=== PATIENT | female | born 1995 | race Caucasian/White ===

== ENCOUNTER 2017-05-08 16:25 | Outpatient (CLI) | payer MEDICAID ==
[2014-03-08 15:07] VITALS: BMI 27.5
[~2017-05-08 16:25] MED LIST: HYDROCODONE-APA1 TAB PO; IBUPROFEN600 MG PO
[2017-05-08 17:36] LABS: APPEARANCE SLT CLOUDY (CLEAR); COLOR YELLOW (YELLOW); SPECIFIC GRAVITY 1.015 (1.005-1.020)
[2017-05-08 17:37] LABS: BILIRUBIN NEGATIVE (NEGATIVE); GLUCOSE NEGATIVE (NEGATIVE); KETONE NEGATIVE (NEGATIVE); NITRITE NEGATIVE (NEGATIVE); PROTEIN NEGATIVE (NEGATIVE); UROBILINOGEN NORMAL (NORMAL)
[2017-05-08 17:38] LABS: RED CELLS - URINE 0-5 /hpf (0-5)
[2017-05-08 17:39] LABS: BACTERIA MODERATE /hpf (NONE SEEN)
[2017-05-17 13:19] VITALS: BMI 38.9
== END 2017-05-08 20:35 | disposition home or self-care (01) ==
LOC: D.LDO 16:25
PROVIDERS: Obstetrics & Gynecology
DX: O26.893 Other specified pregnancy related conditions, third trimester (principal); Z3A.38 38 weeks gestation of pregnancy

== ENCOUNTER → 2017-05-12 16:12 | Outpatient (CLI) | payer MEDICAID ==
[2014-03-08 15:07] VITALS: BMI 27.5
[~2017-05-12 16:12] MED LIST changes: +IBUPROFEN800 MG PO; +PERCOCET 7.5/321 TAB PO
[2017-05-17 13:19] VITALS: BMI 38.9
== END | disposition home or self-care (01) ==
LOC: D.LDO 16:12
DX: O26.893 Other specified pregnancy related conditions, third trimester (principal); Z3A.39 39 weeks gestation of pregnancy

== ENCOUNTER 2017-05-16 05:03 | Inpatient (IN) | payer MEDICAID ==
[~2017-05-16] VITALS: Ht 162.6 cm; Wt 103.0 kg
[2017-05-16] VITALS (7 sets, daily range): BP systolic 111–126; BP diastolic 56–67; BMI 39.0
--- NOTE | ~2017-05-16 | DS ---
PATIENT:KANDACE GARG :89 MEDICAL RECORD: [id number] DISCHARGE SUMMARY ADMISSION DATE: 05/16/17 DISCHARGE DATE: 05/18/17 DATE OF ADMISSION: 05/16/2017. DATE OF DISCHARGE: 05/18/2017. ADMISSION DIAGNOSES: 1. at term. 2. History of prior section. DISCHARGE DIAGNOSES: 1. at term. 2. History of prior section. PROCEDURE: Repeat low transverse section ATTENDING: Dr. Gracia. HISTORY OF PRESENT ILLNESS AND REASON FOR HOSPITALIZATION: See the H&P in the chart. SUMMARY OF HOSPITALIZATION: The patient was admitted to the hospital and received a repeat section without incident. At the time of discharge, she is tolerating regular diet, voiding without difficulty and no complaints of pain. The incision is clean, dry and intact. The patient will be following up in 2 weeks. The standard postoperative and precautions have been reviewed. DISCHARGE MEDICATIONS: Will include Percocet 7.5 mg and Motrin 800 mg to be used as needed for pain. Side effects of these medications have been discussed. TRANSINT:[id number] Voice Confirmation ID: [id number] DOCUMENT ID: [id number] LISSET GRACIA MD at 0721 CC: [id number] DICTATION DATE: 05/18/17 1053 SLOTTER OPERATOR HELPER: 05/18/17 1115 DIS IN 05/18/17 [address] [address] [place] [address]
--- NOTE | ~2017-05-16 | OP ---
PATIENT NAME: KANDACE GARG MEDICAL RECORD: [id number] :89 LOCATION:[facility]73 ADMISSION DATE:05/16/17 SURGEON: CANELO GRACIA MD DATE OF OPERATION: 05/16/2017 PREOPERATIVE DIAGNOSES: 1. , undelivered at 39 weeks' gestation. 2. Prior section. POSTOPERATIVE DIAGNOSES: 1. Mother delivered at 39 weeks. 2. History of prior section. PROCEDURE: Repeat low transverse section. SURGEON: Canelo Gracia MD ANESTHESIOLOGIST: Rodney Landrum MD ANESTHESIA: Spinal. FINDINGS: Viable female , vertex presentation, Apgars 9 and 9, weight 7 pounds 3 ounces. Unremarkable uterus, tubes, and ovaries. SPECIMEN REMOVED: Placenta. SPECIMENS DISPOSITION: Discarded. ESTIMATED BLOOD LOSS: 750 cc. FLUIDS: 1 liter of normal saline. URINE OUTPUT: 450 cc of clear urine. COMPLICATIONS: None. DRAIN: Pacheco to gravity. INDICATIONS: The patient is a 22-year-old with prior section. The patient is in excess of 39 weeks, desires repeat . DESCRIPTION OF PROCEDURE: After informed consent was assured, the patient was taken to the operating room, where anesthetic is obtained without difficulty. The patient was prepped and draped in the usual sterile fashion. Assessment of the anesthetic was found to be adequate. Incision was made over the old scar, carried down to the underlying layer of the fascia, which is up in the midline and extended laterally. Rectus bellies were in the midline. The peritoneum was entered sharply and then rectus muscle bellies further . The Malik all-purpose retractor was inserted. Bladder flap developed and a low transverse hysterotomy performed. was delivered on the abdomen atraumatically and the cord was doubly clamped and cut and the passed to the attendant. Placenta was delivered via Crede maneuver. Uterus exteriorized, cleared of all clot and debris, and then returned to the abdomen for the close. Using ring forceps, the lower segment elevated and the hysterotomy was closed in a running locked fashion with chromic stitch. After closure of the uterus, OPERATIVE REPORT [id number] KANDACE GARG incisions inspected and found to be hemostatic. The rectus bellies were reapproximated in the midline with 2 interrupted chromic stitches. The fascia was closed with a running stitch of looped PDS. Once the fascia was closed, subcutaneous tissues inspected, bleeding vessels cauterized, and the skin was reapproximated with 3-0 Monocryl on a Hong needle. Sterile dressing is applied. Sponge, lap, and needle counts correct times 2. TRANSINT:[id number] Voice Confirmation ID: [id number] DOCUMENT ID: [id number] CANELO GRACIA MD at 0953 CC: [id number] DICTATION DATE: 05/16/17817 PROTECTIVE SIGNAL OPERATOR: 05/16/17 1149 ADM IN [facility] [address] [place] [address]
[~2017-05-16 05:03] MED LIST changes: -IBUPROFEN800 MG PO; -PERCOCET 7.5/321 TAB PO
[2017-05-16 05:59] LABS: APPEARANCE CLEAR (CLEAR); COLOR YELLOW (YELLOW)
[2017-05-16 06:00] LABS: BILIRUBIN NEGATIVE (NEGATIVE); GLUCOSE NEGATIVE (NEGATIVE); KETONE NEGATIVE (NEGATIVE); NITRITE NEGATIVE (NEGATIVE); PROTEIN NEGATIVE (NEGATIVE); SPECIFIC GRAVITY 1.015 (1.005-1.020); UROBILINOGEN NORMAL (NORMAL)
[2017-05-16 06:06] LABS: HEMATOCRIT 36.1 % (36.0-48.0); HEMOGLOBIN 11.9 g/dL (12-16); MEAN PLATELET VOLUME 10.4 fL (7.4-10.4); RBC 4.1 10x6/uL (4.00-5.40); RDW 14.9 % (11.5-14.5)
[2017-05-17 00:04] VITALS: BP 119/60
[2017-05-17 04:37] VITALS: BP 120/56
[2017-05-17 07:30] LABS: RAPID PLASMA REAGIN Non Reactive (Non Reactive)
[2017-05-17 07:55] VITALS: BP 91/53
[2017-05-17 13:19] VITALS: Ht 162.6 cm; Wt 103.0 kg
[2017-05-17 16:05] VITALS: BP 117/56
[2017-05-17 21:31] VITALS: BP 102/52
[2017-05-18 00:35] VITALS: BP 113/58
[2017-05-18 04:02] VITALS: BP 117/56
[2017-05-18 08:15] VITALS: BP 116/59
[2017-05-18] MEDS ORDERED: PERCOCET 7.5/321 TAB PO (12:11)
[2017-05-18] MEDS ORDERED: IBUPROFEN800 MG PO (12:12)
== END 2017-05-18 16:05 | disposition home or self-care (01) | DRG 766 ==
LOC: D.LD 05:03
PROVIDERS: Obstetrics & Gynecology
PROC: 10D00Z1 Extraction of Products of Conception, Low, Open Approach (ICD-10-PCS; principal; 2017-05-16 07:30)
DX: O34.219 Maternal care for unspecified type scar from previous cesarean delivery (principal); Z3A.39 39 weeks gestation of pregnancy; Z37.0 Single live birth